=== PATIENT | male | born 1990 | race Caucasian/White ===

== ENCOUNTER 2016-10-19 16:37 | Outpatient (RCR) | payer OTHER | END 2017-01-17 | disposition home or self-care (01) | LOC: LAB 16:37 | PROVIDERS: ATTEND Family Medicine | DX: N46.9 Male infertility, unspecified (principal) | CPT/HCPCS: 89320 ==

== ENCOUNTER → 2019-08-28 | Outpatient (CLI) | payer OTHER ==
--- NOTE | 2019-08-28 17:32 | Diagnostic Imaging Report ---
INDICATION: Low back pain, lifting injury. FINDINGS: Lumbar stature is normal. The alignment is anatomic. No acute endplate irregularity. IMPRESSION: Negative. Dictated by: Dictated on workstation # [id number]
== END ==
LOC: RAD FS 13:08
PROVIDERS: ATTEND Emergency Medicine
DX: M54.5 Low back pain (principal)
CPT/HCPCS: 72100

== ENCOUNTER 2020-03-14 17:37 | Emergency (ER) | payer OTHER ==
[~2020-03-14] VITALS: Ht 180 cm; Wt 140.0 kg
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
[2020-03-14 17:45] VITALS: BP 145/75
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
[2020-03-14] MEDS ORDERED: CYCL10TA9 PO (18:18)
== END 2020-03-14 18:23 | disposition home or self-care (01) ==
LOC: EDUNIT# 17:37 → ER FS 17:38
DX: S39.012A Strain of muscle, fascia and tendon of lower back, initial encounter (principal); V49.9XXA Car occupant (driver) (passenger) injured in unspecified traffic accident, initial encounter
CPT/HCPCS: 72100